=== PATIENT | female | born 1940 | race Caucasian/White ===

== ENCOUNTER 2022-07-31 10:24 | Emergency (ER) | payer MEDICARE, BC ==
[~2022-07-31] VITALS: Ht 162.6 cm; Wt 52.2 kg
--- NOTE | 2022-07-31 10:30 | NUR ---
PATIENT ARRIVED C/C FINGER FX, A/O X 3, ABLE TO MAKE NEEDS KNOWN.
[2022-07-31 10:49] VITALS: BP 143/59
--- NOTE | 2022-07-31 11:28 | NUR ---
Patient discharged to home in stable condition. Written and verbal after care instructions given. Patient verbalizes understanding of instruction.
== END 2022-07-31 11:30 | disposition home or self-care (01) ==
LOC: ER 10:33
DX: S66.00 Unspecified injury of long flexor muscle, fascia and tendon of thumb at wrist and hand level (principal); X58.XXXD Exposure to other specified factors, subsequent encounter